=== PATIENT | female | born 1960 ===

== ENCOUNTER 2020-09-12 10:29 | Outpatient (CLI) | payer MEDICARE, MEDICAID, SELFPAY ==
--- NOTE | 2020-09-12 10:35 | PDOC.PAIN_ITS ---
Pain Clinic Procedure Note Procedure Note Procedure Note: PROCEDURE NOTE Transforaminal Epidural Steroid Injection with Fluoroscopic Guidance at Left L5 TFESI Chief Complaint: left leg pain, buttock to lateral thigh and left ankle. She has tried Gabapentin and Tramadol without significant pain relief, also reported severe side effects. Pre-operative diagnosis: lumbar radiculopathy Post-operative diagnosis: same as above QUENTIN HOU has been [facility] Transforaminal Epidural Steroid Injection left L5 TFESI COMMENTS: Referring provider: Ms Suzanna Ruiz, APR Pre-procedure VAS: 5/10 to the left leg. Follow up plan: if this provides significant pain relief, then can repeat up to three times per year. QUENTIN HOU was greeted by the nurse who verified patients name and . Patient was then taken to the fluoroscopy suite. QUENTIN was interviewed and the medical record reviewed. There were no medical, pharmacologic, radiographic or other structural contraindications to attempting fluoroscopically guided transforaminal lumbar epidural steroid injection. The risks, benefits, and potential side effects were reviewed with the patient. Risk include, but not limited to, post dural puncture, headache, infection, nerve injury, allergic reaction, possible increase in symptoms over the ensuing 24 to 48 hours, and paralysis. The patient appeared to understand, questions were answered and the patient agreed to proceed. Once I obtained informed verbal consent, the printed consent form was signed by the patient and myself. Standard time-out procedure was performed. TECHNIQUE: After informed written consent was obtained the patient was placed in the prone position. The lumbar spine was prepped with chloraprep and draped. Sterile technique was observed during the entire procedure ( cap, gloves, and mask were worn). Vitals signs were monitored throughout the procedure. The left side was marked with a radioopaque marker. The skin and subcutaneous structures were anesthetized with lidocaine 1% to a total volume of 3 ML at each level. Under fluoroscopic guidance, in ipsilateral oblique view, co-axial approach, 22 gauge 3.5'' spinal needle(s) were advanced to the base of the L5 pedicle(s). The needle(s) were advanced to the superio-posterior aspect of the neural foramen under lateral view. Oblique and AP views were rechecked. Under AP view Omnipaque 240 1 cc's was injected while visualized with fluoroscopy. There was no evidence of intravascular uptake, the epidural space was delineated. 15 mg Dexamethasone was injected after negative aspiration, at each level, followed by lidocaine 1% 1.0-ML at each level. (49 cc of Omnipaque was wasted) Outcome: The patient tolerated the procedure well and had stable vital signs. The patient noted after getting up after the procedure that their left leg pain was at a 1 out of 10 level. Follow up plans and appointments were discussed with QUENTIN . The patient was observed in the pain clinic and then discharged after having met discharge criteria to the care of a otr refrigerated cdl truck driver. The patient received written instructions as documented in nursing records. Disposition: QUENTIN was discharged from the procedure suite without new neurological complaints. Follow-up: Follow up with Ms Briseno on prn basis. Comment: no MRI L spine was identified in our system. If patient had obtained a MRI L spine at outside facility, images and/or report should be transferred to our system. I personally performed the entire procedure. Ameena Amaya MD ABPN-subspecialty board certification in Pain Medicine Attending Physician-Pain Management
[2020-09-12 10:40] VITALS: BP 148/86; PULSE 82; RESP 17; TEMP 36.6; O2SAT 100
[2020-09-12] MEDS: Omnipaque 240 MG/ML 50 ML BTL IJ (11:13)
[2020-09-12] MEDS: Dexamethasone Sod. Phos./Pres-Free 10 MG/ML VIAL IJ (11:13)
--- NOTE | 2020-09-12 11:22 | DI.RAD_ITS ---
Exam(s) XR PAIN CLINIC LUMBAR SP 2V EXAM: XR PAIN CLINIC LUMBAR SP 2V CLINICAL HISTORY: Dx: Lumbar Radiculopathy TECHNIQUE: 2D and realtime digital imaging was performed. CONTRAST MATERIAL: Refer to procedure report. COMPARISON: No exams were available for comparison FINDINGS: Fluoroscopy was provided for Dr. Amaya during the performance of a lumbar transforaminal epidural stero id injection. Please refer to the procedure report for complete details. Ka,r=12.25 mGy IMPRESSION:
[2020-09-12 11:27] VITALS: BP 169/77; PULSE 86; RESP 20; O2SAT 100
== END 2020-09-12 10:30 | disposition home or self-care (01) ==
LOC: PC 10:29
PROVIDERS: Visit Provider Internal Medicine
DX: M54.16 Radiculopathy, lumbar region (principal)
CPT/HCPCS: 64483; 72100; Q9967